=== PATIENT | female | born 1995 | race Caucasian/White ===

== ENCOUNTER 2021-12-21 11:45 | Outpatient (CLI) | payer OTHER, SELFPAY ==
[2021-12-21 12:10] LABS: Basophils Absolute Auto 0.1 K/mm3 (0.0-0.1); Basophils Percent Auto 0.4 % (0.2-1.2); Eosinophils Absolute Auto 0.5 K/mm3 (0-0.3); Eosinophils Percent Auto 4.4 % (0-4.4); Hematocrit 35.4 % (37.0-47.0); Hemoglobin 12.1 g/dL (12.0-15.0); Immature Granulocyte Absolute 0.11 K/mm3 (0.00-0.031); Immature Granulocyte Percent A 0.9 % (0-0.5); Lymphocytes Absolute Auto 2.05 K/mm3 (0.9-3.2); Lymphocytes Percent Auto 17.5 % (18.3-44.2); Mean Corpuscular HGB Conc 34.2 g/dl (32-36); Mean Corpuscular Volume 90.8 fl (80-100); Mean Platelet Volume 9.7 fl (7.4-10.4); Monocytes Absolute Auto 0.7 K/mm3 (0.1-0.6); Neutrophils Absolute Auto 8.3 K/mm3 (1.3-6.7); Neutrophils Percent Auto 70.8 % (45.5-73.1); Platelet Count Result 222 k/mm3 (150-375); Red Cell Distribution Width 13.2 % (11.5-14.5); White Blood Count 11.7 K/mm3 (4.5-10.0)
[2021-12-21 12:22] LABS: Alanine Aminotransferase 16 U/L (6-35); Albumin Level 3.9 g/dL (3.5-5.1); Alkaline Phosphatase 82 U/L (38-126); Anion Gap 10 mmol/L (8-16); Aspartate Amino Transferase 14 U/L (14-36); Bilirubin,Total 0.3 mg/dL (0.2-1.3); Blood Urea Nitrogen 6 mg/dL (7-17); Carbon Dioxide 20 mmol/L (22-30); Chloride 104 mmol/L (98-107); Estimated Glomerular Filt Rate > 60; Glucose 104 mg/dL (65-110); Potassium 3.9 mmol/L (3.4-5.0); Sodium 134 mmol/L (137-145)
[2021-12-27 15:57] LABS: Cholic Acid 1.9 umol/L (< OR = 2.8); Deoxycholic Acid 1.2 umol/L (< OR = 2.3); Total Bile Acids 6.1 umol/L (< OR = 8.3)
== END 2021-12-21 12:07 | disposition home or self-care (01) ==
LOC: ANHOBOP 11:54
PROVIDERS: Visit Provider Obstetrics & Gynecology
DX: Z34.90 Encounter for supervision of normal pregnancy, unspecified, unspecified trimester (principal); Z3A.00 Weeks of gestation of pregnancy not specified
CPT/HCPCS: 36415; 80053; 82542; 85025

== ENCOUNTER 2022-01-13 10:18 | Outpatient (RCR) | payer OTHER, SELFPAY ==
[2022-01-13 12:12] LABS: Hematocrit 35.3 % (37.0-47.0); Hemoglobin 11.7 g/dL (12.0-15.0)
[2022-01-13 12:25] LABS: Glucose 1 Hour PP 50gm Dose 125 mg/dL
[2022-01-13 13:04] LABS: HIV 1/2 Ab P24 Ag Result Negative (Negative)
[2022-01-15] MEDS: RHO(D) IMMUNE GLOBULIN 300 MCG/2 ML SYRINGE IM (11:26)
== END 2022-04-13 23:59 | disposition home or self-care (01) ==
LOC: ANHLAB 10:18
PROVIDERS: Visit Provider Obstetrics & Gynecology
DX: Z11.4 Encounter for screening for human immunodeficiency virus [HIV] (principal); Z29.13 Encounter for prophylactic Rho(D) immune globulin; O36.0130 Maternal care for anti-D [Rh] antibodies, third trimester, not applicable or unspecified; Z3A.00 Weeks of gestation of pregnancy not specified
CPT/HCPCS: 36415; 82947; 85014; 85018; 85461; 86703; 90384; 96372; G0432; J2790

== ENCOUNTER 2022-03-23 21:54 | Inpatient (IN) | payer OTHER, SELFPAY ==
[2022-03-24] VITALS (377 sets, daily range): BP systolic 86–157; BP diastolic 43–102; PULSE 63–156; RESP 16–18; TEMP 36.4–38; O2SAT 80–100; BMI 33.3
--- OUTSIDE RECORDS SUMMARY | 2022-03-24 00:13 | XMS_ITS | Encounter Summary ---
:1995 Author Reason for Visit OB visit Assessment and Plan Assessment Note Patient is ___weeks . Discussed plan. 1. Routine care Discussion Note: None recorded.Patient educational handouts: No information available. Plan of Care Reminders Provider Appointments Ob Routine 03/26/2022 1:15PM Tal Ty MD Lab None recorded. ? ? Referral None recorded. ? ? Procedures None recorded. ? ? Surgeries None recorded. ? ? Imaging None recorded. ? ? Medications Name Start Date ? ? levocetirizine 5 mg tablet ? Take 1 tablet every day by oral route. 28 mg-800 mcg tablet ? ursodiol 300 mg capsule ? Take 1 capsule twice a day by oral route. Medications Administered None recorded. Vitals Height Weight BMI Blood Pressure 5 ft 4.5 in 189 lbs 31.9 kg/m2 127/76 mm[Hg] Results Lab Results None recorded. Allergies Code Code System Name Reaction Severity Onset 7486 RxNorm Nitrous Oxide Anaphylaxis ? ? Problems Name Status Onset Date Source ? Active 09/25/2021 ? -induced Hypertension Active ? ? RhD Negative Active ? ? Procedures Date Name Performed by ? 04/27/[address] Tooth Information n ot available 01/27/2022 US, Obstetric, Follow-[place] [address] (Work Place) Vaccine List None recorded. Social History
--- OUTSIDE RECORDS SUMMARY | 2022-03-24 00:13 | XMS_ITS ---
:1995 Author Care Team Providers Name Role Phone Tal Ty Primary Care Provider Unavailable Allergies Code Code System Name Reaction Severity Status Onset 7479 RxNorm Nitrous Oxide Anaphylaxis ? Active ? Medications Name Status Start Date Stop Date ? ? levocetirizine 5 mg tablet Active ? Not a vailable Take 1 tablet every day by oral route. Mirena 20 mcg/24 hours (8 yrs) 52 mg intrauterine device Complet ed 10/20/2018 01/23/2021 as directed 28 mg-800 mcg tablet Active ? No t available ursodiol 300 mg capsule Active ? Not avai lable Problems Name Status Onset Date Source ? History of Urinary Stone Unknown 05/17/2018 History Rubella Screening Status Unknown 05/17/2018 History Screening Unknown 05/17/2018 History Normal in Multigravida Unknown 05/17/2018 History Gestation Period, 27 Weeks Unknown 06/24/[address] Concept Unknown 06/24/[address] Concept Unknown 06/24/2018 History , Childbirth and Puerperium Finding Unknown 02/2019 History , Childbirth and Puerperium Finding Unknown 01/2019 History Gestation Period, 33 Weeks Unknown 08/05/2018 Histo ry , Childbirth and Puerperium Finding Unknown History Gestation Period, 38 Weeks Unknown 09/10/2018 Histo ry Laceration of Female Perineum Unknown 09/10/2018 Hi story Non-proteinuric Hypertension of Unknown 2018 History Single Live Unknown 10/06/2018 History Lochia Finding Unknown 10/06/2018 History Insertion of Intrauterine Contraceptive Device Unknown 0 10/20/2018 History Test Negative Unknown 10/20/2018 History Clinical Finding Unknown 10/20/2018 History Contraceptive Sheath Status Unknown 11/17/2018 Hist vic
--- OUTSIDE RECORDS SUMMARY | 2022-03-24 00:13 | XMS_ITS | Encounter Summary ---
:1995 Author Reason for Visit OB problem Pt. is here today for f/u on hives. She states these started on evening and have gotten worse. She has hives on her hands, elbows, and feet. She did start on Ursodiol. Assessment and Plan 1. Allergic urticaria ? levocetirizine 5 mg tablet Discussion Note: None recorded.Patient educational handouts: No [...] BMI Blood Pressure 5 ft 4.5 in 176 lbs 29.7 kg/m2 129/74 mm[Hg] Results Lab Results None recorded. Allergies Code Code System Name Reaction Severity Onset 7477 RxNorm Nitrous Oxide Anaphylaxis ? ? Problems Name Status Onset Date Source ? Active 09/25/2021 ? -induced Hypertension Active ? ? RhD Negative Active ? ? Procedures Date Name Performed by ? 04/27/2017 Extraction of [place] Tooth Information n ot available Vaccine List None recorded. Social History Tobacco Smoking Status Never Smoker What type of diet are you following? REGULAR Are you able to walk? YESWOREST
--- OUTSIDE RECORDS SUMMARY | 2022-03-24 00:13 | XMS_ITS | Encounter Summary ---
[...] BMI Blood Pressure 5 ft 4.5 in 185 lbs 31.3 kg/m2 124/76 mm[Hg] Results Lab Results None recorded. Allergies Code Code System Name Reaction Severity Onset 7486 RxNorm Nitrous Oxide Anaphylaxis ? ? Problems Name Status Onset Date Source ? Active 09/25/2021 ? -induced Hypertension Active ? ? RhD Negative Active ? ? Procedures Date Name Performed by ? 04/27/2017 Extraction of [place] Tooth Information n ot available 01/27/2022 US, Obstetric, Follow-[place] [address] (Work Place) Vaccine List None recorded. Social History
--- OUTSIDE RECORDS SUMMARY | 2022-03-24 00:13 | XMS_ITS | Encounter Summary ---
[...] BMI Blood Pressure 5 ft 4.5 in 194 lbs 32.8 kg/m2 128/79 mm[Hg] Results Lab Results None recorded. Allergies Code Code System Name Reaction Severity Onset 7486 RxNorm Nitrous Oxide Anaphylaxis ? ? Problems Name Status Onset Date Source ? Active 09/25/2021 ? -induced Hypertension Active ? ? RhD Negative Active ? ? Procedures Date Name Performed by ? 04/27/2017 Extraction of [place] Tooth Information n ot available Vaccine List None recorded. Social History Tobacco Smoking Status Never Smoker What type of diet are you following? REGULAR Are you able to walk? YESWOREST How much tobacco do you chew? none What is your level of alcohol co
--- OUTSIDE RECORDS SUMMARY | 2022-03-24 00:13 | XMS_ITS | Encounter Summary ---
:1995 Author Reason for Visit OB visit [id number] Assessment and Plan Assessment Note Patient is [...] BMI Blood Pressure 5 ft 4.5 in 200 lbs 33.8 kg/m2 133/82 mm[Hg] Results Lab Results None recorded. Allergies Code Code System Name Reaction Severity Onset 7486 RxNorm Nitrous Oxide Anaphylaxis ? ? Problems Name Status Onset Date Source ? Active 09/25/2021 ? -induced Hypertension Active ? ? RhD Negative Active ? ? Procedures Date Name Performed by ? 04/27/2017 Extraction of [place] Tooth Information n ot available Vaccine List None recorded. Social History Tobacco Smoking Status Never Smoker What type of diet are you following? REGULAR Are you able to walk? YESWOREST Has tobacco cessation counseling been provide
--- OUTSIDE RECORDS SUMMARY | 2022-03-24 00:13 | XMS_ITS | Encounter Summary ---
:1995 Author Reason for Visit None recorded. Assessment and Plan 1. Uterine size for dates discrepancy ? US, obstetric, follow-up Discussion Note: None recorded.Patient educational handouts: No information available. Plan of Care Reminders Provider Appointments Ob Routine 03/26/2022 1:15PM Tal Ty MD Lab None recorded. ? ? Referral None recorded. ? ? Procedures None recorded. ? ? Surgeries None recorded. ? ? Imaging US, Obstetric, Follow-up 01/27/2022 Sonia umana Medications Name Start Date ? ? levocetirizine 5 mg tablet ? Take 1 tablet every day by oral route. 28 mg-800 mcg tablet ? ursodiol 300 mg capsule ? Take 1 capsule twice a day by oral route. Medications Administered None recorded. Vitals None recorded. Results Lab Results None recorded. Allergies Code Code System Name Reaction Severity Onset 7486 RxNorm Nitrous Oxide Anaphylaxis ? ? Problems Name Status Onset Date Source ? Active 09/25/2021 ? -induced Hypertension Active ? ? RhD Negative Active ? ? Procedures Date Name Performed by ? 04/27/2017 Extraction of [place] Tooth Information n ot available 01/27/2022 US, Obstetric, Follow-up [place] [address] [place] [address] (Work Place) Vaccine List None recorded. Social History Tobacco Smoking Status Never Smoker
--- OUTSIDE RECORDS SUMMARY | 2022-03-24 00:13 | XMS_ITS | Encounter Summary ---
[...] BMI Blood Pressure 5 ft 4.5 in 183 lbs 30.9 kg/m2 119/66 mm[Hg] Results Lab Results None recorded. Allergies Code Code System Name Reaction Severity Onset 7486 RxNorm Nitrous Oxide Anaphylaxis ? ? Problems Name Status Onset Date Source ? Active 09/25/2021 ? -induced Hypertension Active ? ? RhD Negative Active ? ? Procedures Date Name Performed by ? 04/27/2017 Extraction of [place] Tooth Information n ot available Vaccine List None recorded. Social History Tobacco Smoking Status Never Smoker What type of diet are you following? REGULAR Are you able to walk? YESWOREST How much tobacco do you chew? none What is your level of alcohol c
[2022-03-24] MEDS: LACTATED RINGERS 1,000 ML 125 ML IV CONT ×4 (00:40→09:40)
[2022-03-24 01:03] LABS: Basophils Absolute Auto 0.1 K/mm3 (0.0-0.1); Basophils Percent Auto 0.4 % (0.2-1.2); Eosinophils Absolute Auto 0.1 K/mm3 (0-0.3); Eosinophils Percent Auto 0.9 % (0-4.4); Hematocrit 38.8 % (37.0-47.0); Immature Granulocyte Absolute 0.07 K/mm3 (0.00-0.031); Immature Granulocyte Percent A 0.5 % (0-0.5); Lymphocytes Absolute Auto 2.34 K/mm3 (0.9-3.2); Lymphocytes Percent Auto 16.6 % (18.3-44.2); Mean Corpuscular HGB Conc 33.5 g/dl (32-36); Mean Corpuscular Hemoglobin 29.1 pg (26-34); Mean Corpuscular Volume 86.8 fl (80-100); Mean Platelet Volume 10.8 fl (7.4-10.4); Monocytes Absolute Auto 0.8 K/mm3 (0.1-0.6); Monocytes Percent Auto 5.7 % (2.6-8.5); Neutrophils Absolute Auto 10.7 K/mm3 (1.3-6.7); Neutrophils Percent Auto 75.9 % (45.5-73.1); Platelet Count Result 291 k/mm3 (150-375); Red Blood Count 4.47 M/mm3 (4.2-5.4); White Blood Count 14.1 K/mm3 (4.5-10.0)
[2022-03-24] MEDS: fentaNYL CITRATE INJ (*CRX) 100 MCG/2 ML VIAL 50 MCG IV PUSH ×2 (01:13→01:30)
[2022-03-24] MEDS: fentaNYL CITRATE INJ (*CRX) 100 MCG/2 ML VIAL IV PUSH ×2 (02:41→04:55)
--- NOTE | 2022-03-24 05:00 | WPDHPUPDATE1 ---
History and Physical Update Update Date/Time: 03/24/22 05:00 History and Physical has been reviewed, including an updated exam of the patient. There are NO changes in the patient's condition. Risks, benefits, and alternatives have been discussed and questions answered. Patient agrees to proceed with procedure. Admitted with contractions, frequent but minimal cervical change. Some late decelerations overnight, so will augment. FHT category 1 currently. AROM clear. /3.
--- NOTE | 2022-03-24 06:09 | P.PNAN_ITS ---
Anes - Eval Pre Procedure Procedure: labor epidural Date/Time: 03/24/22 06:09 Surgeon: elle Preop Diagnosis: pain during labor Pre Op Diagnosis: contractions Patient Data Age: 26 Gender: F Height: Weight: Last Vital Signs Pulse 81 03/24/22 06:00 BP 142/102 H 03/24/22 06:00 Pulse Ox 100 03/24/22 06:09 Allergies Allergy/AdvReac Type Severity Reaction Status Date / Time nitrous oxide Allergy Severe Stopped Verified 08/27/18 13:44 Breathing Home Medications Medication Instructions Recorded Confirmed Type prenat.vits,fantasma,kiy-pbza-otntj 1 tablet PO DAILY 03/17/22 03/17/22 History Laboratory Tests 03/24/22 00:46 WBC 14.1 K/mm3 H K/mm3 (4.5-10.0) RBC 4.47 M/mm3 M/mm3 (4.2-5.4) Hgb 13.0 g/dL g/dL (12.0-15.0) Hct 38.8 % % (37.0-47.0) MCV 86.8 fl fl (80-100) MCH 29.1 pg pg (26-34) MCHC 33.5 g/dl g/dl (32-36) RDW 13.0 % % (11.5-14.5) Plt Count 291 k/mm3 k/mm3 (150-375) MPV 10.8 fl H fl (7.4-10.4) Immature Gran % (Auto) 0.5 % % (0-0.5) Neut % (Auto) 75.9 % H % (45.5-73.1) Lymph % (Auto) 16.6 % L % (18.3-44.2) [place] % (Auto) 5.7 % % (2.6-8.5) Eos % (Auto) 0.9 % % (0-4.4) Baso % (Auto) 0.4 % % (0.2-1.2) Lymph # (Auto) 2.34 K/mm3 K/mm3 (0.9-3.2) [place] # (Auto) 0.8 K/mm3 H K/mm3 (0.1-0.6) Eos # (Auto) 0.1 K/mm3 K/mm3 (0-0.3) Baso # (Auto) 0.1 K/mm3 K/mm3 (0.0-0.1) Abs Immat Gran (auto) 0.07 K/mm3 H K/mm3 (0.00-0.031) Absolute Neuts (auto) 10.7 K/mm3 H K/mm3 (1.3-6.7) Absolute Nucleated RBC 0.0 K/mm3 K/mm3 (0.0-0.012) Nucleated RBC % 0.0 % % (0.0-0.2) Patient hx anesthesia problems: none Family hx anesthesia problems: none Results Review: All pre-operative results and documents have been reviewed as part of the pre- operative evaluation. [facility] Past Medical History Medical History (Updated 03/24/22 @ 06:10 by Hien Horta CRNA) IUP (intrauterine ), incidental Family History Family History (Updated 03/17/22 @ 12:58 by Kristine Biswas RN) Other Patient denies significant medical history Social History Social History Substance use: never Spiritual care concerns: No Exam Day of Procedure 03/24/22 06:09
[2022-03-24] MEDS: PHENYLEPHRINE 1,000 MCG/10 ML SYRINGE 100 MCG IV PUSH (06:52)
[2022-03-24] MEDS: ONDANSETRON INJ 4 MG/2 ML VIAL IV PUSH (07:28)
--- NOTE | 2022-03-24 08:03 | PM.OBPNVD ---
OB - PN: Subj Subjective Date/time seen: 03/24/22 08:03 OB - PN: Obj Data Labs CBC & Chem 7: 03/24/22 00:46 Labs: Laboratory Results - last 24 hr 03/24/22 00:46 WBC 14.1 H RBC 4.47 Hgb 13.0 Hct 38.8 MCV 86.8 MCH 29.1 MCHC 33.5 RDW 13.0 Plt Count 291 MPV 10.8 H Immature Gran % (Auto) 0.5 Neut % (Auto) 75.9 H Lymph % (Auto) 16.6 L [place] % (Auto) 5.7 Eos % (Auto) 0.9 Baso % (Auto) 0.4 Lymph # (Auto) 2.34 [place] # (Auto) 0.8 H Eos # (Auto) 0.1 Baso # (Auto) 0.1 Abs Immat Gran (auto) 0.07 H Absolute Neuts (auto) 10.7 H Absolute Nucleated RBC 0.0 Nucleated RBC % 0.0 OB - PN A/P Time Spent With Patient Time: Total time spent is greater than 50% in coordination of care (as documented) at patient's floor/unit and/or counseling patient: Review of Systems Review of Systems: 18-year-old 2 para [id number] at term who presented in labor, had artificial rupture of membranes at 3:00 a.m., this progressed to 5 cm, reassuring heart tones. Considering Pitocin for augmentation, has an epidural. Continue expected management.
[2022-03-24] MEDS: SODIUM CHLORIDE 0.9% IV 300 ML 600 ML I-UTERINE (09:40)
[2022-03-24] MEDS: OXYTOCIN 30 UNITS/NS 500 ML 30 UNITS/500 ML BAG IV CONT (10:15)
[2022-03-24] MEDS: FAMOTIDINE 20 MG/2 ML VIAL IV PUSH (11:23)
[2022-03-24] MEDS: CALCIUM CARBONATE (TUMS) 500 MG (200 MG ELEMENTAL) PO (11:24)
[2022-03-24 12:45] LABS: Rapid Plasma Reagin Non-Reactive (NonReactive)
--- NOTE | 2022-03-24 19:28 | PM.OBPNVD ---
OB - PN: Subj Subjective Date/time seen: 03/24/22 19:28 after pushing for 3 hours, patient like to proceed with , she has a swollen vulva and cervix and vagina. Baby is malpositioned in the ROP position. There is some elevated body temperature bordering on fever. There is some decreased variability the heart tones. Will proceed for nonreassuring heart tones. And failure of descent. Patient understands risks, benefits, and alternatives. OB - PN: Obj Data Labs CBC & Chem 7: 03/24/22 00:46 Labs: Laboratory Results - last 24 hr 03/24/22 03/24/22 03/24/22 00:46 00:46 00:46 WBC 14.1 H RBC 4.47 Hgb 13.0 Hct 38.8 MCV 86.8 MCH 29.1 MCHC 33.5 RDW 13.0 Plt Count 291 MPV 10.8 H Immature Gran % (Auto) 0.5 Neut % (Auto) 75.9 H Lymph % (Auto) 16.6 L [place] % (Auto) 5.7 Eos % (Auto) 0.9 Baso % (Auto) 0.4 Lymph # (Auto) 2.34 [place] # (Auto) 0.8 H Eos # (Auto) 0.1 Baso # (Auto) 0.1 Abs Immat Gran (auto) 0.07 H Absolute Neuts (auto) 10.7 H Absolute Nucleated RBC 0.0 Nucleated RBC % 0.0 RPR Non-reactive Blood Type O Negative Antibody Screen Positive OB - PN A/P Time Spent With Patient Time: Total time spent is greater than 50% in coordination of care (as documented) at patient's floor/unit and/or counseling patient:
--- NOTE | 2022-03-24 19:31 | PM.IMHP ---
H&P: HPI History of Present Illness Date/Time: 03/24/22 19:31 Chief Complaint: Failure to descend Narrative: this patient is a 26-year-old multiparous female with previous vaginal . She presented for elective induction of labor. She proceeded to complete and began pushing.after pushing for 3 hours, patient would like to proceed with , she has a swollen vulva and cervix and vagina. Baby is malpositioned in the ROP position. There is some elevated body temperature bordering on fever. There is some decreased variability the heart tones. Will proceed for nonreassuring heart tones. And failure of descent. Patient understands risks, benefits, and alternatives Review of Systems Review of Systems: All systems reviewed & are unremarkable except as noted in HPI and below Constitutional: Constitutional: Denies chills, Denies fatigue, Denies fever(s) and Denies weakness Eyes: Eyes: Denies blurry vision, Denies change in vision, Denies loss of peripheral vision, Denies loss of vision, Denies other visual disturbances and Denies eye pain ENT: Denies vertigo, Denies dizziness, Denies hearing loss, Denies mouth pain, Denies nasal obstruction, Denies neck mass and Denies neck pain Cardiovascular: Cardiovascular: Denies chest pain, Denies diaphoresis, Denies syncope, Denies leg edema and Denies dyspnea Respiratory: Respiratory: Denies chest congestion, Denies cough, Denies hemoptysis, Denies dyspnea and Denies wheezing Gastrointestinal: Gastrointestinal: Denies abdominal pain, Denies constipation, Denies diarrhea, Denies nausea and Denies vomiting Genitourinary: Genitourinary: Denies hematuria, Denies change in libido, Denies nocturia, Denies genital lesions, Denies flank pain and Denies urinary urgency Musculoskeletal: Musculoskeletal: Denies abnormal gait, Denies back pain, Denies myalgias, Denies arthralgias, Denies joint swelling, Denies muscle weakness and Denies neck pain Integumentary/Breasts: Skin/Breast: Denies swelling, Denies breast pain, Denies breast mass, Denies dry skin, Denies nipple discharge, Denies unusual bruising and Denies jaundice Neurologic: Denies Neuro-related abnormal movements, Denies Abnormal speech present, Denies abnormal gait, Denies behavioral changes, Denies confusion, Denies vertigo, Denies dizziness, Denies syncope, Denies loss of vision, Denies memory loss, Denies convulsions and Denies weakness Psychiatric: Psychiatric: Denies abnormal sleep pattern, Denies behavioral changes, Denies change in libido, Denies confusion, Denies depression, Denies anhedonia and Denies memory loss Endocrine: Endocrine: Reports no additional endocrine complaints, Denies change in libido and Denies fatigue Hematologic/Lymphatic: Hematologic/Lymphatic: Reports no additional hematologic/lymphatic complaints Allergic/Immunologic: Allergic/Immunologic: Reports no additional allergic/immunologic complaints and Denies wheezing PMFSH Past Medical History Medical History (Updated 03/24/22 @ 19:33 by Kevin Ty MD) IUP (intrauterine ), incidental Family History Family History (Updated 03/17/22 @ 12:58 by Kristine Biswas RN) Other Patient denies significant medical history Social History Social History Substance use: never Spiritual care concerns: No Meds Home Medications and Allergies Home Medications Medication Instructions Recorded Confirmed Type prenat.vits,fantasma,scg-hupb-wicgc 1 tablet PO DAILY 03/17/22 03/17/22 History Allergies Allergy/AdvReac Type Severity Reaction Status Date / Time nitrous oxide Allergy Severe Stopped Verified 08/27/18 13:44 Breathing Vital Signs Vital Signs - 24 hr 03/24/22 00:16 03/24/22 00:17 03/24/22 00:22 Temperature Pulse Rate 72 Blood Pressure 124/82 Pulse Oximetry 100 100 100 03/24/22 00:27 03/24/22 00:31 03/24/22 00:32 Temperature Pulse Rate 72 Blood Pressure 121/87 Pulse Oximetry 1
[2022-03-24] MEDS: ceFAZolin 2 GM/D5W 50 ML 2 GM/50 ML BAG IVPB (19:39)
--- NOTE | 2022-03-24 20:31 | W.PM.PROC2 ---
Procedure Note - Detailed Date of Procedure 03/24/22 Pre-op Diagnosis Failure to descend, nonreassuring status Post-op Diagnosis Same Procedure Performed Low-transverse section Surgeon Kevin Ty MD Anesthesia Spinal Indications Failure to descend, nonreassuring status Findings Normal gestational maternal anatomy, average size infant, normal Apgars. Description of Procedure The patient was taken the operating room. She was prepped and draped in dorsal supine position with a leftward tilt. This was done after spinal anesthetic was applied. A low-transverse skin incision was made and carried down till of the fascia with the knife. The fascial incision was made with the knife. The fascial incision was extended laterally with Martins scissors. The fascia was tented upward superiorly and inferiorly the rectus muscles were dissected off bluntly. The rectus muscles were the midline. The preperitoneal fat and peritoneum were dissected open bluntly at the superior aspect of the rectus muscles. The peritoneal incision was extended superior and inferior with good position of bladder. The uterine incision was made with a scalpel down to the level of the amniotic cavity. The amniotic cavity was entered bluntly. The was delivered. The cord was clamped and cut and the infant was handed off to waiting pediatric staff. Cord bloods were obtained. The placenta was removed manually. The uterus was exteriorized. The uterus was cleared of all clots, debris and membranes. The uterus was closed in 0 Vicryl running lock fashion. An imbricating over a was placed along the incision line as well. The uterus was returned to the abdomen. The gutters were cleared of all clots and debris. The fascia was closed with 0 Vicryl running fashion. The subcutaneous tissue was irrigated pinpoint bleeders were cauterized. The skin was closed with subcuticular absorbable luis. The skin incision line was covered with glue. The patient tolerated the procedure well. She has taken recovery room in stable condition. Sponge lap and needle counts were correct x2. Estimated Blood Loss 320 Complications No immediate complications Condition Stable Disposition PACU
[2022-03-24] MEDS: OXYTOCIN 30 UNITS/NS 500 ML 30 UNITS/500 ML BAG 125 UNITS IV CONT (21:02)
[2022-03-24] MEDS: HYDROmorphone HCL INJ (*CRX) 1 MG/ML SYR 0.5 MG IV PUSH (21:29)
[2022-03-25 00:35] VITALS: BP 108/71; PULSE 72; RESP 18; TEMP 36.4; O2SAT 100
[2022-03-25] MEDS: DEXTROSE 5%/0.45% SOD CHL 1,000 ML 125 ML (01:33)
--- NOTE | 2022-03-25 02:30 | PC.NURSE ---
0228- called - received post-op orders on pt.
--- NOTE | 2022-03-25 02:52 | OBPPTRN ---
03/25/2022 at 0028 Patient transferred to post room #291. Support person present. Oriented to unit, room, information board, rooming in, admission packet. Patient verbalizes understanding.
[2022-03-25 04:15] VITALS: BP 108/74; PULSE 62; RESP 16; TEMP 35.9; O2SAT 100
[2022-03-25 04:57] LABS: Basophils Absolute Auto 0.1 K/mm3 (0.0-0.1); Basophils Percent Auto 0.3 % (0.2-1.2); Eosinophils Absolute Auto 0.1 K/mm3 (0-0.3); Eosinophils Percent Auto 0.4 % (0-4.4); Hematocrit 30.7 % (37.0-47.0); Hemoglobin 10.1 g/dL (12.0-15.0); Immature Granulocyte Absolute 0.11 K/mm3 (0.00-0.031); Immature Granulocyte Percent A 0.6 % (0-0.5); Lymphocytes Absolute Auto 1.25 K/mm3 (0.9-3.2); Lymphocytes Percent Auto 6.3 % (18.3-44.2); Mean Corpuscular HGB Conc 32.9 g/dl (32-36); Mean Corpuscular Hemoglobin 28.9 pg (26-34); Mean Platelet Volume 10.3 fl (7.4-10.4); Monocytes Percent Auto 5.1 % (2.6-8.5); Neutrophils Absolute Auto 17.2 K/mm3 (1.3-6.7); Neutrophils Percent Auto 87.3 % (45.5-73.1); Platelet Count Result 214 k/mm3 (150-375); Red Blood Count 3.49 M/mm3 (4.2-5.4); Red Cell Distribution Width 13.1 % (11.5-14.5); White Blood Count 19.7 K/mm3 (4.5-10.0)
--- NOTE | 2022-03-25 08:30 | PC.NURSE ---
Discussed pumping with this patient and offered to provide her with a hospital pump to get started as soon as possible in order to help establish a good milk supply since infant was transferred and she has not initiated pumping yet. Patient declined hospital pump and states she brought her own so I offered to help her get it set up. Patient states she will wait for her mother to get back and she can help her.
[2022-03-25] MEDS: DOCUSATE SODIUM 100 MG CAPSULE PO ×2 (08:38→19:06)
[2022-03-25] MEDS: MULTIVIT/MIN/PREN/FOL AC/IRON TABLET 1 TAB PO (08:38)
[2022-03-25] MEDS: KETOROLAC 30 MG/ML VIAL (*BKC) IV PUSH (08:39)
[2022-03-25 08:40] VITALS: BP 118/68; PULSE 84; RESP 16; TEMP 36.5; O2SAT 99
--- NOTE | 2022-03-25 08:53 | WPDANLDNPN2 ---
Anes-Prog Note L&D-Neuraxial Date/Time: 03/25/22 08:53 Patient feedback: Patient satisfied with post-operative pain management.
--- NOTE | 2022-03-25 08:53 | WPDANLDPN2 ---
Anes-Prog Note L&D Date/Time: 03/25/22 08:53 Neuro status: Neuro function grossly intact. Vital Signs: Last Vital Signs Temp 35.9 C L 03/25/22 04:15 Pulse 62 03/25/22 04:15 Resp 16 03/25/22 04:15 BP 108/74 03/25/22 04:15 Pulse Ox 100 03/25/22 04:15 O2 Del Method Room Air 03/24/22 23:00 Pain score (VAS): 0 I/O: Intake & Output 03/24/22 03/25/22 03/25/22 23:59 07:59 15:59 Intake Total 250 400 Output Total 975 Balance 250 -575 Patient feedback: Patient satisfied with anesthetic care.
[2022-03-25] MEDS: HYDROcodone/acetaminophen (*CRX) 5-325 MG TABLET 1 TAB PO ×3 (10:08→19:07)
--- NOTE | 2022-03-25 10:13 | P.PNOB_ITS ---
OB - PN: Subj Subjective Date/time seen: 03/25/22 10:13 Patient comments: no complaints, pain well controlled, tolerating diet and flatus present OB - PN: Obj Data Labs CBC & Chem 7: 03/25/22 04:12 Labs: Laboratory Results - last 24 hr 03/24/22 03/24/22 03/25/22 00:46 00:46 04:12 WBC 19.7 H RBC 3.49 L Hgb 10.1 L Hct 30.7 L MCV 88.0 MCH 28.9 MCHC 32.9 RDW 13.1 Plt Count 214 MPV 10.3 Immature Gran % (Auto) 0.6 H Neut % (Auto) 87.3 H Lymph % (Auto) 6.3 L [place] % (Auto) 5.1 Eos % (Auto) 0.4 Baso % (Auto) 0.3 Lymph # (Auto) 1.25 [place] # (Auto) 1.0 H Eos # (Auto) 0.1 Baso # (Auto) 0.1 Abs Immat Gran (auto) 0.11 H Absolute Neuts (auto) 17.2 H Absolute Nucleated RBC 0.0 Nucleated RBC % 0.0 RPR Non-reactive Antibody Identification Passive Due to RH Imm Glob Antigen Identification Cancelled RESHMA, IgG Interpret Not Performed RESHMA, Poly Interpret Negative RESHMA, Complement Interp Not Performed OB - PN A/P Plan day: 1 Comments: Post Op LTCS - no problems, routine recovery Time Spent With Patient Time: Total time spent is greater than 50% in coordination of care (as documented) at patient's floor/unit and/or counseling patient: Exam Const: General: cooperative, healthy appearing, comfortable and no acute distress Resp: Auscultation: no crackles, no rales, no rhonchi and no wheezes Cardio: Rhythm: regular rhythm Heart sounds: no click and no murmurs GI: Inspection: non-distended Auscultation: normal bowel sounds Extrem: General: normal to inspection, no pedal edema and no calf tenderness
--- NOTE | 2022-03-25 11:14 | PC.NURSE ---
Primary RN reported that patient has been educated to stimulate milk production with pumping, patient has her own pump and has not initiated pumping yet related to separation from her .
[2022-03-25 12:04] VITALS: BP 116/83; PULSE 78; RESP 16; TEMP 36.8; O2SAT 100
[2022-03-25] MEDS: IBUPROFEN 600 MG TABLET PO ×2 (14:07→19:06)
--- NOTE | 2022-03-25 14:15 | PC.NURSE ---
This patient left on a therapeutic leave pass to visit her at [facility] on 03/25/22 at 1415. Patient understands she is supposed to be back in 4 hours.
--- NOTE | 2022-03-25 18:20 | PC.NURSE ---
This patient is back from the therapeutic leave pass.
[2022-03-25 19:11] VITALS: BP 138/87; PULSE 82; RESP 18; TEMP 37; O2SAT 100
[2022-03-26] MEDS: IBUPROFEN 600 MG TABLET PO ×2 (01:21→06:54)
[2022-03-26] MEDS: HYDROcodone/acetaminophen (*CRX) 5-325 MG TABLET 1 TAB PO ×2 (01:21→06:53)
[2022-03-26] MEDS: SIMETHICONE 80 MG TAB.CHEW PO (06:52)
[2022-03-26] MEDS: DOCUSATE SODIUM 100 MG CAPSULE PO (06:52)
[2022-03-26] MEDS: LANOLIN (LANSINOH) 7.5 GM CREAM 1 APPLIC TOPICAL (06:56)
--- NOTE | 2022-03-26 07:00 | PC.NURSE ---
PT introductions made and plan of care discussed per post , pain management, breast pumping, daily care activities, baby transferred, plans of discharge. PT and her mother both received discharge instructions per one to one discussion, mom baby care guide and demonstrations. No barriers to learning identified at this time.
[2022-03-26 07:14] VITALS: BP 138/87; PULSE 72; RESP 18; TEMP 36.4; O2SAT 100
--- NOTE | 2022-03-26 07:30 | PM.OBPNVD ---
OB - PN: Subj Subjective Date/time seen: 03/26/22 07:30 Patient comments: no complaints, pain well controlled, incisional pain, tolerating diet and flatus present OB - PN: Obj Data Labs 03/25/22 04:12 OB - PN A/P Plan day: 2 Plan: routine care Comments: POD#2 LTCS - no problems, Time Spent With Patient Time: Total time spent is greater than 50% in coordination of care (as documented) at patient's floor/unit and/or counseling patient: Exam Const: General: comfortable, no acute distress and alert Resp: Effort & Inspection: normal respiratory effort Auscultation: no crackles, no rales and no rhonchi Cardio: Rate: regular rate Heart sounds: no click, no murmurs and no rubs GI: Inspection: non-distended GI Palp: No Tenderness to palpation present (GI) Auscultation: normal bowel sounds Other: Incision - CDI Extrem: General: normal to inspection, no pedal edema and no calf tenderness
--- NOTE | 2022-03-26 07:31 | P.DS_ITS ---
DS: Admitting Diagnosis Discharge Date March 26, 2022 Admitting Diagnosis Term OB - DS: Summary OB Procedures : None OB Procedures Intrapartum: OB Procedures: : None Peripartum Data Procedures: Procedures Operation Date: 03/24/22 19:45 Actual Procedure Side Surgeon p Section Not Applicable Kevin Ty MD Time Spent with Patient Time attestation: Total time spent providing and/or coordinating discharge services: Discharge Plan Discharge Discharging Clinician: Kevin Ty Patient Disposition: Home, Self-Care Activity: pelvic rest Diet: regular Patient Instructions: Antibiotic Form Stand Alone Forms: General Discharge Information Follow-up/Referrals: Kevin Ty MD [Physician] - Discharge Medications: New hydrocodone-acetaminophen 5-325 mg tablet 1 tablet PO Q4H PRN (Reason: pain) Qty: 25 0RF Continued #2 Tablet 1 tablet PO DAILY Date of admission: 03/23/22 21:54 Primary Care Provider: PHYSICIAN,ACADEMIC AFFAIRS COORDINATOR Admitting Provider: Kevin Ty Attending physician on admission: Kevin Ty Condition: Stable
--- NOTE | 2022-03-26 09:00 | PC.NURSE ---
PT received discharge instructions per protocol and verbalized understanding of such care.
--- NOTE | 2022-03-26 09:18 | PC.NURSE ---
PT discharged to home ambulatory accompanied by her mother to waiting car. Follow up appts confirmed
== END 2022-03-26 09:18 | disposition home or self-care (01) | DRG 540 ==
LOC: ANHLDR 03-24 00:11 → ANHOB2 03-25 00:55
PROVIDERS: Obstetrics & Gynecology; Admitting Provider Obstetrics & Gynecology; Visit Provider Obstetrics & Gynecology
PROC: 10D00Z1 Extraction of Products of Conception, Low, Open Approach (ICD-10-PCS; CPT 59514; principal; 2022-03-24 19:45)
DX: O32.8XX0 Maternal care for other malpresentation of fetus, not applicable or unspecified (principal); O36.8330 Maternal care for abnormalities of the fetal heart rate or rhythm, third trimester, not applicable or unspecified; Z37.0 Single live birth; Z3A.38 38 weeks gestation of pregnancy; O62.2 Other uterine inertia; O69.81X0 Labor and delivery complicated by cord around neck, without compression, not applicable or unspecified
CPT/HCPCS: 36415; 85025; 86592; 86850; 86880; 86900; 86901; 86902; A9270; J0131; J0456; J0690; J1170; J1885; J2175; J2274; J2370; J2405; J2590; J2795; J3010; J7030; J7120